=== PATIENT | male | born 1950 | race Caucasian/White ===

== ENCOUNTER 2019-03-28 13:07 | Observation (INO) | payer MEDICARE, OTHER ==
[~2019-03-28] VITALS: Ht 182.9 cm; Wt 106.6 kg
[~2019-03-28 13:07] MED LIST: Z.0.ASPIRIN CHEW81 M PO; Z.0.FISH OIL300 MG; Z.0.OMEPRAZOLE20 M1 PO; Z.0.SYNTHROID150 MCG PO
[2019-03-28 13:46] LABS: BASOPHILS # (AUTO) 0.1 (0.0-0.1); EOSINOPHILS # (AUTO) 0.2 (0.0-0.4); EOSINOPHILS % 2.3 % (0.0-6.0); HEMATOCRIT 42.5 % (38.2-49.6); HEMOGLOBIN 14.3 g/dL (14.0-18.0); LYMPHOCYTES # (AUTO) 1.4 (1.0-3.2); LYMPHOCYTES % 21.1 % (18.0-39.1); MEAN CORPUSCULAR HEMOGLOBIN 28.8 pg (28-32); MEAN CORPUSCULAR HGB CONC 33.6 g/dL (31-35); MEAN CORPUSCULAR VOLUME 85.7 fL (81-99); MONOCYTES # (AUTO) 0.4 (0.2-0.8); MONOCYTES % 5.7 % (4.4-11.3); NEUTROPHILS # (AUTO) 4.7 (2.1-6.9); NEUTROPHILS % 69.6 % (38.7-80.0); PLATELET COUNT 128 x10e3/uL (140-360); RED BLOOD COUNT 4.96 x10e6/uL (4.3-5.7); RED CELL DISTRIBUTION WIDTH 13.9 % (11.7-14.4)
[2019-03-28] MEDS ORDERED: ATENOLOL50 MG PO (13:46)
[2019-03-28] MEDS ORDERED: FLOMAX0.4 MG PO (13:46)
[2019-03-28] MEDS ORDERED: ALLOPURINOL300 MG PO (13:46)
[2019-03-28] MEDS ORDERED: CRESTOR10 MG PO (13:46)
[2019-03-28] MEDS ORDERED: CHLORTHALIDONE25 MG PO (13:46)
[2019-03-28] MEDS ORDERED: MELOXICAM7.5 MG PO (13:46)
[2019-03-28 14:05] LABS: ALANINE AMINOTRANSFERASE 23 IU/L (0-55); ALBUMIN 4.4 g/dL (3.5-5.0); ALBUMIN/GLOBULIN RATIO 1.5 (0.8-2.0); ALKALINE PHOSPHATASE 88 IU/L (40-150); ANION GAP 12.6 mmol/L (8-16); BLOOD UREA NITROGEN 28 mg/dL (7-26); BUN/CREATININE RATIO 15 (6-25); CALCIUM 10.2 mg/dL (8.4-10.2); CARBON DIOXIDE 23 mmol/L (22-29); CHLORIDE 108 mmol/L (98-107); CREATINE KINASE 104 IU/L (30-200); CREATININE, SERUM 1.84 mg/dL (0.72-1.25); EST GLOMERULAR FILTRATION RATE 37 ML/MIN (60-); GLUCOSE 112 mg/dL (74-118); POTASSIUM 4.6 mmol/L (3.5-5.1); SODIUM 139 mmol/L (136-145)
[2019-03-28 14:09] LABS: INR 0.88; PROTHROMBIN TIME 12.4 seconds (11.9-14.5)
[2019-03-28 14:10] LABS: PARTIAL THROMBOPLASTIN TIME 36.5 seconds (23.8-35.5)
--- NOTE | 2019-03-28 14:26 | Diagnostic Imaging Report ---
EXAMINATION: CHEST 2 VIEWS INDICATION: Chest pain COMPARISON: None FINDINGS: LINES/TUBES:EKG leads overlie the chest. LUNGS:The lung volumes are low. No focal consolidation or pulmonary edema. PLEURA:No pleural effusion or pneumothorax. MEDIASTINUM:The cardiomediastinal silhouette appears normal in size and shape. Atherosclerotic calcifications of the thoracic aorta. BONES/SOFT TISSUES:No acute osseous injury. Mild degenerative changes of the visualized spine. Mild diffuse osteopenia. Thyroidectomy clips in the neck. ABDOMEN:No free air under the diaphragm. Status post cholecystectomy. IMPRESSION: Low lung volumes. No focal pneumonia or pulmonary edema. Signed by: Bettina Jameson MD on 03/28/2019 2:23 PM
--- OUTSIDE RECORDS SUMMARY | 2019-03-28 15:48 | XMS REPORT ---
Author Author [facility] Address Unknown Phone Unavailable Care Team Providers Care Sanitizer Name Role Phone VICTOR M DIAS Unavailable Unavailable Problems This patient has no known problems. Allergies, Adverse Reactions, Alerts This patient has no known allergies or adverse reactions. Medications This patient has no known medications. Results Test Description Test Time Test Comments Text Results Atomic Results Result Comments CHEST 2 VIEWS 2019-03-28 14:21:00 [place] [id number] Patient Name: YASIR GALVEZ MR #: [id number] : 1950 Age/Sex: 68/M Req #: [id number] Adm Physician: Ordered by: VICTOR M DIAS DO Report #: [id number] Location: ER Room/Bed: Procedure: [id number] DX/CHEST 2 VIEWS Exam Date: 03/28/19 Exam Time: 1340 REPORT STATUS: Signed EXAMINATION: CHEST 2 VIEWS INDICATION: Chest pain COMPARISON: None FINDINGS: LINES/TUBES:EKG leads overlie the chest. LUNGS:The lung volumes are low. No focal consolidation or pulmonary edema. PLEURA:No pleural effusion or pneumothorax. MEDIASTINUM:The cardiomediastinal silhouette appears normal in size and shape. Atherosclerotic calcifications of the thoracic aorta. BONES/SOFT TISSUES:No acute osseous injury. Mild degenerative changes of the visualized spine. Mild diffuse osteopenia. Thyroidectomy clips in the neck. ABDOMEN:No free air under the diaphragm. Status post cholecystectomy. IMPRESSION: Low lung volumes. No focal pneumonia or pulmonary edema. Signed by: Yelena Jameson MD on 03/28/2019 2:23 PM Dictated By: YELENA JAMESON MD 1423 Transcribed By: MILLY on 03/28/191422 COPY TO: VICTOR M DIAS,
--- NOTE | 2019-03-28 16:45 | NUR ---
STEAM ROOM ATTENDANT TELEPHONED MD [place] OFFICE TO MAKE AWARE OF CONSULT, AWAITING CALL BACK
[2019-03-28 16:54] VITALS: BP 109/76
[2019-03-28 17:51] VITALS: BP 109/76
[2019-03-28 18:01] VITALS: BP 109/76
--- NOTE | 2019-03-28 18:28 | NUR ---
VOICES NO NEEDS AT THIS TIME, CALL LIGHT WITHIN REACH
[2019-03-28 18:30] LABS: CREATINE KINASE 84 IU/L (30-200)
--- NOTE | 2019-03-28 18:36 | NUR ---
SPOKE WITH MD BERNAL, NOTIFIED OF NEW PT, ORDERS NOTED
--- NOTE | 2019-03-28 19:00 | NUR ---
RECEIVED PATIENT IN BEDSIDE REPORT. PATIENT RESTING IN BED AT THIS TIME. NO CP REPORTED, SLIGHT PRESSURE REPORTED. TELE BOX 17, RUNNING SR - 63. NO S&S OF DISTRESS NOTED. BED LOCKED IN LOWEST POSITION, SIDE RAILS UPX2, CALL LIGHT IN REACH.
[2019-03-28 20:00] VITALS: BP 120/75
[2019-03-28 20:34] VITALS: BP 120/75
[2019-03-28] MEDS ORDERED: ENOXAPARIN SODIUM INJ 100 MG/ML SYR SC SCH (21:00)
[2019-03-28 21:17] LABS: PLATELET ESTIMATE ADEQUATE; PLATELET MORPHOLOGY COMMENT NORMAL; RBC MORPHOLOGY COMMENT NORMAL
[2019-03-29] VITALS: BP 112/77
[2019-03-29 00:46] LABS: CREATINE KINASE 75 IU/L (30-200)
[2019-03-29 04:00] VITALS: BP 100/68
[2019-03-29 05:51] LABS: CREATINE KINASE 77 IU/L (30-200)
[2019-03-29 06:34] LABS: CHOL/HDL RATIO 2.9 (3.9-4.7)
--- NOTE | 2019-03-29 06:55 | NUR ---
Received patient lying in bed with eyes open. Respiration even and unlabored without SOB. Call light in reach.
[2019-03-29 07:02] LABS: CREATINE KINASE MB < 1.00 ng/mL (0-4.3)
[2019-03-29 07:49] VITALS: BP 104/74
--- NOTE | 2019-03-29 07:51 | NUR ---
H&P cc: cp HPI: 68yoM, PCP , developed cp substernal, heaviness, sob, dizziness, while driving home. now symptoms gone; father had stroke; no FH NM. PMH: gout, HLD, BPH, HTN, hypothyroidism, thyroid cancer s/p thyroidectomy 04/2010, cardiac arrhythmia in 1970s PSHx: thyroid, right hand, right shoulder, right knee, cholecystectomy Allergies; see emr FHSH; father Stroke; no NM; ; no cigs meds; see MAR ROS; no f/c/s/N/V/D/GOMES/vision changes/skin rash/back pain v/s; revd PE tired appearing aniceric ns1s2 mod bs soft nt nd no e/t alert; huitron skin dry n. affect labs/meds revd A/P: Atypical CP HTN Obesity BMI 31.9 HLD BPH Gout Hypothyroidism PLAN get Lexiscan; if negative send home; echo normal LVEF Cardiac enzymes negative; f/u echo; f/u cardio Hba1c/LDL 5.6/56 restart home meds Prop: lovenox bid; ppi dispo: f/u Harshal Gordon MD, PhD.
[2019-03-29 07:53] VITALS: BP 105/46
[2019-03-29 08:24] LABS: ANION GAP 12.5 mmol/L (8-16); CALCIUM 9.4 mg/dL (8.4-10.2); CREATININE, SERUM 1.87 mg/dL (0.72-1.25); POTASSIUM 4.5 mmol/L (3.5-5.1)
[2019-03-29 08:59] VITALS: BP 104/74
[2019-03-29] MEDS ORDERED: ALLOPURINOL 300 MG TAB PO SCH (09:00)
[2019-03-29] MEDS ORDERED: ASPIRIN 325 MG TAB PO SCH (09:00)
[2019-03-29] MEDS: OMEPRAZOLE 20 MG CAP PO SCH ×2 (09:00→17:58)
[2019-03-29] MEDS ORDERED: REGADENOSON 0.4 MG/5 ML SYR IV ONE (11:40)
[2019-03-29 11:41] VITALS: BP 131/69
--- NOTE | 2019-03-29 13:06 | NUR ---
Patient is transported for cardiac stress test lexiscan at this time.
[2019-03-29] MEDS ORDERED: ENOXAPARIN SODIUM INJ 100 MG/ML SYR SC SCH (17:00)
--- NOTE | 2019-03-29 17:09 | NUR ---
OK PER DR. ANN FOR PT TO DC HOME.
--- NOTE | 2019-03-29 18:37 | NUR ---
Patient is to D/C home today. PIV to right AC discontinued, catheter tip intact, no bleeding noted. transported patient via wheelchair to private vehicle. All personal belongings taken by patient.
--- NOTE | 2019-03-29 19:59 | Myoview Stress Test ---
DATE OF STUDY: 03/29/2019 11:04:00 Stress Test - Treadmill ONLY Lexiscan Stress Test STRESS SUMMARY: The patient underwent pharmacologic stress testing with Lexiscan under the usual protocol. Baseline blood pressure was 162/89, and agnieszka to 174/107. Heart rate increased from 85 to 94 beats per minute. The patient elicited no cardiac symptoms throughout the stress summary. ELECTROCARDIOGRAPHIC STRESS SUMMARY: Baseline 12-lead electrocardiogram showed normal sinus rhythm. There were no arrhythmias or ST changes noted. MYOCARDIAL PERFUSION IMAGING: The patient received Myoview at rest and stress. Perfusion images were normal. It did not reveal any ischemia or scar. Ejection fraction was noted at 66%. CONCLUSIONS: 1. Normal clinical, hemodynamic, and electrocardiographic stress test. 2. Normal myocardial perfusion imaging. 3. Left ventricular ejection fraction of 66%. DO ULYSSES Barahona/JACQUES /[id number]
[2019-03-29] MEDS ORDERED: TAMSULOSIN HCL 0.4 MG CAP PO SCH (21:00)
[2019-03-29] MEDS ORDERED: SIMVASTATIN 40 MG TAB PO SCH (21:00)
--- NOTE | 2019-03-30 00:06 | Consultation ---
DATE OF CONSULTATION: Cardiology Consultation REASON FOR CONSULTATION: Chest pain. HISTORY OF PRESENT ILLNESS: This is a 68-year-old man with a history of hypertension and hyperlipidemia, who presented to emergency department with chest discomfort, mild intensity, essentially located without radiation, associated with shortness of breath, palpitations, and lightheadedness. He had no other exacerbating or relieving factors. No prior cardiac history. REVIEW OF SYSTEMS: A 12-point review of system was conducted, is negative except as stated above in the HPI. PAST MEDICAL HISTORY: As stated above in the HPI. PAST SURGICAL HISTORY: None recent. PAST FAMILY HISTORY: Noncontributory. SOCIAL HISTORY: No illicit drug, alcohol, or tobacco use. ALLERGIES: NO KNOWN DRUG ALLERGIES. MEDICATIONS: See med reconciliation form. PHYSICAL EXAMINATION: VITAL SIGNS: Temperature is 96.4, heart rate 60, respirations are 18, and oxygen saturation 97% on room air. GENERAL: Well appearing, well built, in no apparent distress. Alert and oriented x3. HEAD: Normocephalic, atraumatic. EYES: The extraocular muscles are intact. Conjunctivae clear. NECK: No JVD. No bruits. CARDIOVASCULAR: Regular rate and rhythm. LUNGS: Clear to auscultation. ABDOMEN: Soft, nontender, nondistended. EXTREMITIES: No clubbing, cyanosis, or edema. VASCULAR: 2+ pulses. SKIN: Warm, dry, and intact. NEUROLOGIC: No focal deficits noted. LABORATORY DATA: Reviewed. Cardiac enzymes within normal limits. A 12-lead electrocardiogram showed normal sinus rhythm. Echocardiogram showed left ventricular ejection fraction of 55% to 60% with normal valves. Myocardial perfusion imaging stress test showed normal perfusion. IMPRESSION: 1. Precordial pain. 2. Palpitation. 3. Hypertension. 4. Hyperlipidemia. RECOMMENDATIONS: The patient ruled out for acute myocardial infarction. His echocardiogram and stress test were within normal limits. Continue current cardiovascular medications. Check a lipid panel. The patient may be discharged from a cardiovascular standpoint with outpatient Holter monitoring. DO ULYSSES Barahona/MODL /[id number]
[2019-03-30] MEDS ORDERED: LEVOTHYROXINE SODIUM 112 MCG TAB PO SCH (06:00)
[2019-03-30] MEDS ORDERED: LEVOTHYROXINE SODIUM 25 MCG TABLET PO SCH (06:00)
== END 2019-03-29 18:37 | disposition home or self-care (01) ==
LOC: ER 13:07 → ERHOLD 15:45 → INTOOBSV 15:45 → MED/SURG 16:01
PROVIDERS: ADMIT Internal Medicine; ATTEND Internal Medicine
DX: R07.2 Precordial pain (principal); I10 Essential (primary) hypertension; E78.5 Hyperlipidemia, unspecified; R00.2 Palpitations; Z82.3 Family history of stroke; Z85.850 Personal history of malignant neoplasm of thyroid; E89.0 Postprocedural hypothyroidism; E66.9 Obesity, unspecified; Z68.31 Body mass index [BMI] 31.0-31.9, adult; N40.0 Benign prostatic hyperplasia without lower urinary tract symptoms; M10.9 Gout, unspecified
CPT/HCPCS: 36415 ×2; 71046; 78452; 80048; 80053; 80061; 82550 ×2; 82553 ×2; 83036; 84484 ×2; 85025; 85610; 85730; 93005; 93017; 93307; 99284; A9502; G0378 ×2; J1650 ×2; J2785

== ENCOUNTER → 2022-09-30 | Outpatient (CLI) | payer MEDICARE ==
[~2022-09-30] MED LIST changes: +ALLOPURINOL300 MG PO; +ATENOLOL50 MG PO; +CHLORTHALIDONE25 MG PO; +CRESTOR10 MG PO; +FLOMAX0.4 MG PO; +MELOXICAM7.5 MG PO
== END ==
LOC: RAD 10:11
PROVIDERS: ATTEND Internal Medicine Cardiovascular Disease
DX: R07.9 Chest pain, unspecified (principal)
CPT/HCPCS: 93306